=== PATIENT | female | born 1990 | race Caucasian/White ===

== ENCOUNTER 2020-05-20 20:22 | Outpatient (CLI) | payer OTHER ==
[~2020-05-20 20:22] MED LIST: NORCO 5-325 TA1 EACH PO; PRENATA CHEWAB1 EACH PO
== END 2020-05-20 21:47 | disposition home or self-care (01) ==
LOC: GENOP 20:22
DX: O60.03 Preterm labor without delivery, third trimester (principal); Z3A.31 31 weeks gestation of pregnancy
CPT/HCPCS: 81001; 83518; G0463

== ENCOUNTER 2020-07-09 02:03 | Inpatient (IN) | payer OTHER ==
[~2020-07-09] VITALS: Ht 177.8 cm; Wt 94.8 kg
[2020-07-09] MEDS ORDERED: PRENATAL ONE T1 EAC1 PO (03:50)
[2020-07-09] MEDS ORDERED: IRON325 M1 PO (03:50)
[2020-07-09 04:08] LABS: HEMOGLOBIN 11.5 gm/dl (12.3-15.3); RED BLOOD COUNT 3.91 M/UL (4.00-5.10); WHITE BLOOD COUNT 10.5 K/UL (4.5-11.0)
[2020-07-09] MEDS ORDERED: IBUPROFEN600 MG PO (07:54)
[2020-07-09] MEDS ORDERED: DOCUSATE SODIU100 MG PO (07:54)
[2020-07-10 02:08] LABS: HEMOGLOBIN 9.4 gm/dl (12.3-15.3)
== END 2020-07-11 13:23 | disposition home or self-care (01) | DRG 807 ==
LOC: OB 02:03 → CDU 02:03 → OB 03:47
PROVIDERS: Obstetrics & Gynecology; ADMIT Obstetrics & Gynecology
PROC: 10E0XZZ Delivery of Products of Conception, External Approach (ICD-10-PCS; principal; 2020-07-09)
PROC: 0UQMXZZ Repair Vulva, External Approach (ICD-10-PCS; 2020-07-09)
DX: O69.81X0 Labor and delivery complicated by cord around neck, without compression, not applicable or unspecified (principal); Z37.0 Single live birth; Z3A.39 39 weeks gestation of pregnancy; O71.82 Other specified trauma to perineum and vulva
CPT/HCPCS: 36415; 51702; 82800; 85014; 85018; 85025; 86900; 86901; 90471; 90715; J2405; J2590; J2795; J3010; U0002

== ENCOUNTER 2020-12-11 19:54 | Emergency (ER) | payer OTHER ==
[~2020-12-11 19:54] MED LIST changes: +DOCUSATE SODIU100 MG PO; +IBUPROFEN600 MG PO; +IRON325 M1 PO; +PRENATAL ONE T1 EAC1 PO
[2020-12-11 21:46] LABS: HEMOGLOBIN 13.8 gm/dl (12.3-15.3); RED BLOOD COUNT 4.85 M/UL (4.00-5.10); WHITE BLOOD COUNT 4.6 K/UL (4.5-11.0)
[2020-12-11 22:04] LABS: BUN/CREATININE RATIO 15 (0-10)
== END 2020-12-12 01:30 | disposition home or self-care (01) ==
LOC: ER1 19:54
PROVIDERS: Physician Assistant Medical
DX: M25.561 Pain in right knee (principal); F17.210 Nicotine dependence, cigarettes, uncomplicated; Z90.89 Acquired absence of other organs
CPT/HCPCS: 71045; 80053; 85025; 85379; 85610; 99283

== ENCOUNTER → 2021-05-29 | Day surgery (SDC) | payer OTHER ==
[~2021-05-29] MED LIST changes: +HYDROCODON-ACE1 EAC6 PO; +NIKKI 3 MG-0.01 EACH PO
[2021-05-29 06:21] LABS: HEMOGLOBIN 12.6 gm/dl (12.3-15.3); RED BLOOD COUNT 4.51 M/UL (4.00-5.10); WHITE BLOOD COUNT 5.7 K/UL (4.5-11.0)
== END | disposition home or self-care (01) ==
LOC: OR 05:33
PROVIDERS: Obstetrics & Gynecology
DX: N94.89 Other specified conditions associated with female genital organs and menstrual cycle (principal); N94.10 Unspecified dyspareunia; N85.4 Malposition of uterus; N85.8 Other specified noninflammatory disorders of uterus; K59.39 Other megacolon; K59.09 Other constipation; N92.6 Irregular menstruation, unspecified; D26.1 Other benign neoplasm of corpus uteri; Z20.822 Contact with and (suspected) exposure to COVID-19
CPT/HCPCS: 84703; 85025; J1100; J1170; J1885; J2001; J2250; J2405; J2704; J2795; J3010; J7120

== ENCOUNTER → 2021-07-09 | Outpatient (CLI) | payer OTHER ==
[2021-07-09 08:40] LABS: HEMOGLOBIN 12.8 gm/dl (12.3-15.3); RED BLOOD COUNT 4.55 M/UL (4.00-5.10); WHITE BLOOD COUNT 5.8 K/UL (4.5-11.0)
== END ==
LOC: OPSV2 08:06
PROVIDERS: Obstetrics & Gynecology
DX: Z01.812 Encounter for preprocedural laboratory examination (principal); N94.10 Unspecified dyspareunia
CPT/HCPCS: 36415; 81001; 85025

== ENCOUNTER → 2021-07-24 | Day surgery (SDC) | payer OTHER ==
[~2021-07-24] MED LIST changes: +COLACE 100MG C100 MG PO
== END | disposition home or self-care (01) ==
LOC: OR 05:33
DX: N80.0 Endometriosis of uterus (principal); N80.3 Endometriosis of pelvic peritoneum; N94.6 Dysmenorrhea, unspecified; N94.10 Unspecified dyspareunia; N92.6 Irregular menstruation, unspecified; Z20.822 Contact with and (suspected) exposure to COVID-19; Z98.82 Breast implant status
CPT/HCPCS: 84703; J0690; J1100; J1170; J1885; J2001; J2250; J2405; J2704; J2710; J2795; J3010; J7120